=== PATIENT | male | born 1960 | race Two or more races ===

== ENCOUNTER 2016-10-13 22:06 | Emergency (ER) | payer OTHER ==
[2016-10-13 23:08] LABS: BASOPHIL % 1.5 % (0-2); PLATELET COUNT 326 x10^3mcL (130-400); RED CELL DISTRIBUTION WIDTH 13.1 % (11.5-14.5)
[2016-10-13 23:18] LABS: CALCIUM 8.8 mg/dL (8.5-10.1); CARBON DIOXIDE 28.1 mmol/L (21-32); CHLORIDE SERUM 92 mmol/L (98-107); GFR1 > 60 mL/min; GLUCOSE SERUM 333 mg/dL (74-106); POTASSIUM SERUM 3.6 mmol/L (3.5-5.1); SODIUM SERUM 131 mmol/L (136-145)
[2016-10-13 23:23] LABS: ALKALINE PHOSPHATASE 107 U/L (46-116); ALT/SGPT 27 U/L (16-63); AST/SGOT 15 U/L (15-37); BILIRUBIN TOTAL 0.2 mg/dL (0.20-1.00)
[2016-10-13 23:37] LABS: UA SPECIFIC GRAVITY >=1.030 (1.005-1.035); microscopic required? YES; urine erythrocyte 3+ (NEGATIVE)
[2016-10-13 23:49] LABS: ALBUMIN 3.1 g/dL (3.4-5.0)
[2016-10-14 00:33] VITALS: BP 147/91
== END 2016-10-14 00:33 | disposition home or self-care (01) ==
LOC: ED 22:06
PROVIDERS: Emergency Medicine
DX: N39.0 Urinary tract infection, site not specified (principal); I10 Essential (primary) hypertension; E11.9 Type 2 diabetes mellitus without complications; Z88.0 Allergy status to penicillin; Z79.84 Long term (current) use of oral hypoglycemic drugs
CPT/HCPCS: 36415; J1815

== ENCOUNTER 2018-03-29 07:33 | Inpatient (IN) | payer MEDICAID ==
[~2018-03-29] VITALS: Ht 175.3 cm; Wt 87.1 kg
[2018-03-29 07:40] VITALS: Ht 175.3 cm; Wt 87.1 kg
[2018-03-29 08:29] LABS: BASOPHIL % 0.9 % (0-2); PLATELET COUNT 306 x10^3mcL (130-400); RED CELL DISTRIBUTION WIDTH 13.5 % (11.5-14.5)
--- NOTE | 2018-03-29 09:02 | NUR ---
PT AWAKE AND ALERT. PT C/O DIZZINESS, HIGH BP AND FATIGUE X1 MONTH. PT REPORTS BEING NON COMPLIANT WITH HTN AND DM MEDICATIONS. PER , PT DOES NOT EAT WELL AND LIKES TO EAT A LOT OF SUGAR. PT ABLE TO ANSWER QUESTIONS APPROPRIATELY. PT DENIES ANY C/P. PT ON FULL CM. CALL LIGHT WITHIN REACH. MSE COMPLETED BY DR BHAT. RESP E/U
--- NOTE | 2018-03-29 09:04 | NUR ---
TWO IV'S IN PLACE. ONE ON L AC AND ONE ON R AC. BOTH IV'S PATENT. 2,000 ML BOLUS RUNNING AT THIS TIME.
[2018-03-29 09:06] LABS: ALBUMIN 3.6 g/dL (3.4-5.0); ALKALINE PHOSPHATASE 136 U/L (46-116); ALT/SGPT 27 U/L (16-63); AST/SGOT 17 U/L (15-37); BILIRUBIN TOTAL 0.51 mg/dL (0.20-1.00); CALCIUM 8.6 mg/dL (8.5-10.1); CARBON DIOXIDE 27.8 mmol/L (21-32); CHLORIDE SERUM 87 mmol/L (98-107); CREATININE SERUM 1.3 mg/dL (0.7-1.3); GFR1 > 60 mL/min; PHOSPHOROUS 4.7 mg/dL (2.5-4.9); TOTAL PROTEIN, SERUM 7.7 g/dL (6.4-8.2)
[2018-03-29 09:25] LABS: GLUCOSE SERUM 948 mg/dL (74-106); SODIUM SERUM 122 mmol/L (136-145)
--- NOTE | 2018-03-29 09:33 | NUR ---
PT MEDICATED WITH 10U REGULAR INSULIN, PER MD ORDERS
[2018-03-29] MEDS ORDERED: GLIPIZIDE10 M2 PO (09:34)
[2018-03-29] MEDS ORDERED: NOVOLOG FLEX100 U/M1 SC (09:34)
[2018-03-29] MEDS ORDERED: LANTUS SOLOS100 U/M1 SC (09:34)
[2018-03-29] MEDS ORDERED: LISINOPRIL10 MG PO (09:35)
--- NOTE | 2018-03-29 10:18 | NUR ---
DR BHAT NOTIFIED OF BLOOD GLUCOSE LEVEL OF 512
--- NOTE | 2018-03-29 10:45 | NUR ---
PT PROVIDED URINAL
--- NOTE | 2018-03-29 11:07 | NUR ---
PT RESTING ON ED GURNEY. PT ON FULL CM. PT EASILY AROUSABLE. NAD. RESP E/U. CALL LIGHT WITHIN REACH.
[2018-03-29 11:47] VITALS: BP 136/85
--- NOTE | 2018-03-29 11:47 | NUR ---
REC PT VIA GURENY, AMB TO BED, AA/O X4. BREATHING EVEN AND UNLABORED ON RA. NO SOB OR ACUTE RESP DISTRESS NOTED. MEDSURG. DENIES ANY CP OR PRESSURE. BOWEL SOUNDS ACTIVE IN ALL FOUR QUADS. DENIES ANY DISCOMFORT. VOIDS FREELY. AMB. IV TO THE L AND RAC 20G, INTACT AND PATENT, INFUSING AT 250ML/HR. NO REDNESS OR SWELLING NOTED. VS: 136/85 MAP 99, 91 HR, 98 RA, RESP 17. WILL CONTINUE TO MONITOR.
--- NOTE | 2018-03-29 13:04 | NUR ---
PER DR. JONES ORDERS HOLD 12 UNITS SLIDING SCALE AND GIVE 15UNITS OF REG INSULIN. PT REFUSE TO TAKE [address] REG [address] GIPSON. PT REMAINS NPO. WILL CONTINUE TO MONITOR.
[2018-03-29 13:25] VITALS: BP 136/85
[2018-03-29 13:30] LABS: CHOLESTEROL/HDL RATIO 4.6
[2018-03-29 16:45] VITALS: BP 191/118
[2018-03-29 17:46] VITALS: BP 164/101
--- NOTE | 2018-03-29 17:48 | NUR ---
BP 164/101 MAP 119, HR 89 DR. DOMINIQUE MADE AWARE.
--- NOTE | 2018-03-29 18:22 | NUR ---
SPOT ACCU CK PER DR. DOMINIQUE = 171, OK TO GIVE JELLO / WATER WILL BE ADDING DIET, CCHO. WILL CONTINUE TO MONITOR.
[2018-03-29 18:30] LABS: microscopic required? NO
--- NOTE | 2018-03-29 18:46 | NUR ---
NO ACUTE CHANGES AT THIS TIME. NO ACUTE RESP DISTRESS OR SOB NOTED, DENIES ANY CHEST PAIN OR PRESSURE. PT IS MUCH CALM AFTER HE WAS ABLE TO SNACK ON JELLO AND SANDWHICH PER DR. DOMINIQUE. IV TO THE RAC INTACT AND PATENT, INFUSING AT 250ML/HR, TOLERATING WELL. WILL ENDORSE TO INCOMING RN.
[2018-03-29 19:00] VITALS: BP 128/74
[2018-03-29 19:05] LABS: UA SPECIFIC GRAVITY 1.015 (1.005-1.035); urine erythrocyte NEGATIVE (NEGATIVE)
[2018-03-29 19:13] LABS: AMPHETAMINE QUAL UR POSITIVE (See below)
[2018-03-29 20:34] VITALS: BP 143/81
--- NOTE | 2018-03-29 20:35 | NUR ---
PATIENT RECEIVED ASLEEP IN BED BUT EASILY AROUSABLE TO NAME CALLING. RESPIRATION EVEN AND UNLABORED, ON ROOM AIR. ONGOING 0.9% NS AT 250 CC/HR INFUSING WELL AT THE RIGHT/LEFT ANTECUBITAL AREA. VOIDING FREELY WITHOUT DIFFICULTY. AMBULATORY. SKIN DRY AND INTACT. DENIES DISCOMFORT/PAIN AT THIS TIME. WILL CONTINUE TO MONITOR.
[2018-03-30 05:30] VITALS: BP 179/104
[2018-03-30 06:08] LABS: BASOPHIL % 0.5 % (0-2); PLATELET COUNT 293 x10^3mcL (130-400); RED CELL DISTRIBUTION WIDTH 13.4 % (11.5-14.5)
--- NOTE | 2018-03-30 06:12 | NUR ---
PATIENT RESTING IN BED. RESPIRATION EVEN AND UNLABORED, ON ROOM AIR. IV SITE NO SIGN OF INFILTRATION. ASSISTED WITH NEEDS. SAFETY OBSERVED. PLACED BED IN THE LOWEST POSITION. PLACED CALL LIGHT WITHIN REACH AT ALL TIMES.
--- NOTE | 2018-03-30 06:12 | NUR ---
PATIENTS BLOOD PRESSURE ELEVATED, 175/121. DR HAWKINS MADE AWARE.
[2018-03-30 06:21] LABS: CALCIUM 8.2 mg/dL (8.5-10.1); CARBON DIOXIDE 24.9 mmol/L (21-32); CHLORIDE SERUM 100 mmol/L (98-107); CREATININE SERUM 0.7 mg/dL (0.7-1.3); GFR1 > 60 mL/min; GLUCOSE SERUM 263 mg/dL (74-106); POTASSIUM SERUM 3.5 mmol/L (3.5-5.1); SODIUM SERUM 133 mmol/L (136-145)
--- NOTE | 2018-03-30 06:37 | NUR ---
PATIENT GIVEN HYRDRALAZINE 10 MG IVP ORDERED FOR ELEVATED BLOOD PRESSURE.
--- NOTE | 2018-03-30 07:27 | NUR ---
PT ENDORSE TO ME THIS MORNING. LAYING IN BED RESTING WITH EYES CLOSE/ EASILY AROUSABLE. TELE 12 SR/96 HR, NO SIGN OF CP OR PRESSURE. BREATHING EVEN AND UNLABORED ON RA. BOWEL SOUNDS ACTIVE IN ALL FOUR QUADS. VOIDS FREELY. GEN WEAKNESS NOTED. AMB. IV TO THE RAC AND LAC INTACT AND PATENT, INFUSING AT 80ML/HR. NO REDNESS OR SWELLING NOTED. CALL LIGHT IN REACH .BED IN LOW POSITION/ CALL LIGHT IN RAECH. BED IN LOW POSITION WILL CONTINUE PLAN OF CARE.
[2018-03-30 08:00] VITALS: BP 138/97
[2018-03-30 11:55] VITALS: BP 150/87
--- NOTE | 2018-03-30 13:50 | NUR ---
PT TOLERATED 100% OF OF HIS LUNCH. DENIES ANY ABD PAIN OR N/V. WILL CONTINUE PLAN OF CARE.
[2018-03-30 16:11] VITALS: BP 147/90
--- NOTE | 2018-03-30 18:09 | NUR ---
TOLERATED 100% DINNER. DENIES ANY N/V OR ABD DISCOMFORT. WILL CONTINUE PLAN OF CARE.
--- NOTE | 2018-03-30 20:00 | NUR ---
RECEIVED PT IN BED, RESTING QUIETLY. ALERT AND ORIENTED. DENIES HEADACHE/DIZZINESS. RESP. EVEN AND UNLABORED. ON ROOM AIR, NO ACUTE DISTRESS NOTED. SR ON THE MONITOR, DENIES CHEST PAIN OR ANY DISCOMFORT. IVF NS AT 80ML/HR, INTACT AND INFUSING VIA RAC, SITE CLEAR. AMBULATORY. VOIDING FREELY.NO COMPLAINTS NOTED AT THIS TIME. CALL LIGHT WITHIN REACH. WILL CONTINUE TO MONITOR.
[2018-03-30 21:48] VITALS: BP 149/91
--- NOTE | 2018-03-31 02:27 | NUR ---
NO COMPLAINTS NOTED AT THIS TIME. ASLEEP, EASILY AROUSABLE. RESP. EVEN AND UNLABORED. NO ACUTE DISTRESS NOTED.
--- NOTE | 2018-03-31 03:01 | NUR ---
COMPLAINING OF PAIN TO IV SITE, RONAKONT. NEW IV SITE RESTARTED ON RT HAND WITH #22G ANGIO. IVF INFUSING AT THIS TIME. WILL CONTINUE TO MONITOR.
--- NOTE | 2018-03-31 04:58 | NUR ---
B/P READING SHOWS 170/98. HYDRALAZINE PO GIVEN ORDERED. WILL CONTINUE TO MONITOR.
[2018-03-31 05:38] VITALS: BP 150/88
[2018-03-31 06:25] LABS: BASOPHIL % 0.4 % (0-2); PLATELET COUNT 309 x10^3mcL (130-400); RED CELL DISTRIBUTION WIDTH 13.9 % (11.5-14.5)
--- NOTE | 2018-03-31 06:28 | NUR ---
AFEBRILE. B/P RECHECK SHOWS 150/88. PT DENIES CHEST PAIN OR ANY DISCOMFORT AT THIS TIME. IVF INTACT AND INFUSING WELL, SITE CLEAR.VOIDING FREELY. NO COMPLAINTS NOTED AT THIS TIME. BLOOD SUGAR CHECKED, INSULIN COVERAGE GIVEN ORDERED. NO S/S OF HYPO/HYPERGLYCEMIA NOTED. WILL ENDORSE TO INCOMING NURSE.
[2018-03-31 06:53] LABS: CALCIUM 8.1 mg/dL (8.5-10.1); CARBON DIOXIDE 23.9 mmol/L (21-32); CHLORIDE SERUM 99 mmol/L (98-107); CREATININE SERUM 0.7 mg/dL (0.7-1.3); GFR1 > 60 mL/min; GLUCOSE SERUM 196 mg/dL (74-106); MAGNESIUM 1.6 mg/dL (1.8-2.4); PHOSPHOROUS 3.1 mg/dL (2.5-4.9); POTASSIUM SERUM 3.1 mmol/L (3.5-5.1); SODIUM SERUM 128 mmol/L (136-145)
--- NOTE | 2018-03-31 07:12 | NUR ---
RECEIVED PT FROM GIGI ALMENDAREZ. PT FOUND RESTING IN BED WITH BOTH EYES CLOSED NO S/S OF ACUTE DISTRESS. RR EVEN/UNLABORED. CHEST EXP SYMMETRICAL. NO SOB. NO S/S OF CHEST PAIN. IV WNL TO RH, NO REDNESS, NO SWELLING, NO INFILTRATION. IV FLUIDS FLOWING. BED IN LOW POSITION. CALL LIGHT WITHIN REACH. WILL CONT. TO MONITOR.
[2018-03-31 08:13] VITALS: BP 152/100
[2018-03-31 08:52] VITALS: BP 152/100
--- NOTE | 2018-03-31 11:00 | NUR ---
PT LEFT AMA WITHOUT BEING SEEN BY PHYSICIAN. PT STATES, "I WANT TO GO HOME, I DON'T NEED TO BE AT THIS HOSPITAL ANYMORE. I CAN TAKE CARE OF MYSELF." PT AWAKE, ALERT, ORIENTED X4. NO COMPLAINT OF PAIN. NO SOB ON ROOM AIR. NO S/S OF ACUTE DISTRESS. PT CRYING/AGITATED. IVS REMOVED FROM RIGHT HAND AND LAC, NO REDNESS, NO SWELLING, NO INFILTRATION. CATHETERS IN TACT. PRESSURE APPLIED. SITES WNL. NSR ON TELE, TELE REMOVED. NO CHEST PAIN. TIMBER MANAGEMENT ASSISTANT EILEEN ZAIDI MADE AWARE. [employer] MANSURI GIPSON. ESCORTED PT TO LOBBY. BELONGINGS WITH PATIENT. INSTRUCTED PT TO FOLLOW UP WITH PCP. PT STATED, "I WILL TRY TO SEE IF I CAN MAKE AN APPOINTMENT TO SEE HIM TODAY."
== END 2018-03-31 11:00 | disposition left against medical advice (07) | DRG 199 ==
LOC: ED 07:33 → MU 10:17 → DU 03-30 06:45
PROVIDERS: Emergency Medicine; ADMIT Family Medicine
DX: I16.0 Hypertensive urgency (principal); D68.69 Other thrombophilia; E11.42 Type 2 diabetes mellitus with diabetic polyneuropathy; E11.65 Type 2 diabetes mellitus with hyperglycemia; E11.59 Type 2 diabetes mellitus with other circulatory complications; E87.1 Hypo-osmolality and hyponatremia; Z68.28 Body mass index [BMI] 28.0-28.9, adult; Z79.4 Long term (current) use of insulin; Z91.11 Patient's noncompliance with dietary regimen
CPT/HCPCS: 82962; J0360; J1644; J1815; J2405; J3490; J7030; J8597; Q0092

== ENCOUNTER 2018-07-23 20:16 | Emergency (ER) | payer OTHER ==
[~2018-07-23] VITALS: Ht 170.2 cm; Wt 85.7 kg
[~2018-07-23 20:16] MED LIST: GLIPIZIDE10 M2 PO; LANTUS SOLOS100 U/M1 SC; LISINOPRIL10 MG PO; NOVOLOG FLEX100 U/M1 SC
[2018-07-23 20:29] VITALS: Ht 170.2 cm; Wt 85.7 kg
[2018-07-23 21:33] LABS: BASOPHIL % 0.5 % (0-2); PLATELET COUNT 388 x10^3mcL (130-400); RED CELL DISTRIBUTION WIDTH 14.5 % (11.5-14.5)
[2018-07-23 21:53] LABS: CARBON DIOXIDE 27.6 mmol/L (21-32); CHLORIDE SERUM 99 mmol/L (98-107); CREATININE SERUM 0.8 mg/dL (0.7-1.3); GFR1 > 60 mL/min; GLUCOSE SERUM 264 mg/dL (74-106); POTASSIUM SERUM 4.4 mmol/L (3.5-5.1); SODIUM SERUM 134 mmol/L (136-145)
[2018-07-23 21:58] LABS: ALBUMIN 3.6 g/dL (3.4-5.0); ALKALINE PHOSPHATASE 85 U/L (46-116); ALT/SGPT 27 U/L (16-63); AST/SGOT 13 U/L (15-37); BILIRUBIN TOTAL 0.3 mg/dL (0.20-1.00); TOTAL PROTEIN, SERUM 7.2 g/dL (6.4-8.2)
[2018-07-24 00:23] VITALS: BP 154/101
== END 2018-07-24 01:04 | disposition home or self-care (01) ==
LOC: ED 20:16
PROVIDERS: Emergency Medicine
DX: R53.83 Other fatigue (principal); D64.9 Anemia, unspecified; R19.7 Diarrhea, unspecified; R42 Dizziness and giddiness; R53.1 Weakness
CPT/HCPCS: 82962; 83880; 84439; J7030

== ENCOUNTER 2018-12-08 14:57 | Inpatient (IN) | payer OTHER ==
[~2018-12-08] VITALS: Ht 175.3 cm; Wt 107.1 kg
[2018-12-08 15:16] VITALS: Ht 175.3 cm; Wt 107.1 kg
--- NOTE | 2018-12-08 15:38 | NUR ---
DR. SILVA AT BEDSIDE FOR MSE.
--- NOTE | 2018-12-08 15:38 | NUR ---
PT PRESENTS TO ED BIBA WITH C/O OF GENERALIZED WEAKNESS X2 WKS AND BILATERAL UPPER AND LOWER EXTREMITY PAIN. PER PT HAS BEEN ONLY EATING AND SLEEPING LAST COUPLE DAYS AND DOES DIFFICULT TO MOVE AROUND. REPORTS PT HAS HX OF ULCERS AND HAD GI BLEEDING 6MONTHS AGO. PER PT ACTS LETHARGIC "WHEN HIS BLOOD COUNT IS LOW". PT STS HE HAS HX OF UPPER AND LOWER EXTREMITY PAIN BUT IT HAS BEEN WORSE FOR LAST 2WKS. PT AAOX4, RESP E/U, ON FULL CM, AT BEDSIDE, WILL CONTINUE TO MONITOR.
--- NOTE | 2018-12-08 15:56 | NUR ---
PT OFF FLOOR FOR XRAY
[2018-12-08 16:26] LABS: BASOPHIL % 0 % (0-2); PLATELET COUNT 417 x10^3mcL (130-400)
[2018-12-08 16:39] LABS: CALCIUM 8.3 mg/dL (8.5-10.1); CHLORIDE SERUM 101 mmol/L (98-107); CREATININE SERUM 0.9 mg/dL (0.7-1.3); GFR1 > 60 mL/min; GLUCOSE SERUM 274 mg/dL (74-106); POTASSIUM SERUM 5.2 mmol/L (3.5-5.1); SODIUM SERUM 135 mmol/L (136-145)
[2018-12-08 16:46] LABS: rbc morphology (normal/abnorm) ABNORMAL (NORMAL)
[2018-12-08 16:52] LABS: ALKALINE PHOSPHATASE 91 U/L (46-116); ALT/SGPT 34 U/L (16-63); AST/SGOT 24 U/L (15-37); BILIRUBIN TOTAL 0.2 mg/dL (0.20-1.00); HDL CHOLESTEROL 43 mg/dL (40-60); LIPASE 203 IU/L (73-393); T4(THYROXINE) 7.2 ug/dL (4.7-13.3); TOTAL PROTEIN, SERUM 7.6 g/dL (6.4-8.2)
[2018-12-08 16:56] LABS: ALBUMIN 3.2 g/dL (3.4-5.0); CHOLESTEROL 222 mg/dL (<200)
[2018-12-08 17:12] LABS: microscopic required? NO
[2018-12-08 17:33] LABS: UA SPECIFIC GRAVITY 1.015 (1.005-1.035); urine erythrocyte NEGATIVE (NEGATIVE)
[2018-12-08 17:58] LABS: AMPHETAMINE QUAL UR NONE DETECTED (See below)
--- NOTE | 2018-12-08 18:30 | NUR ---
PT SITTING UP ON CARMENZA, AAOX4, RESP E/U, NO ACUTE DISTRESS NOTED AT THIS TIME. PT AT BEDSIDE.
--- NOTE | 2018-12-08 19:25 | NUR ---
REPORT GIVEN TO SURI SON TO ASSUME CARE OF PT.
--- NOTE | 2018-12-08 19:30 | NUR ---
FIRST INTIAL CONTACT WITH PT, PT. LAYING IN BED, DIAPHORETIC, INTERMITTENT CONFUSION, OBTAINED BS, BS WAS 31, ADMINISTERED D50 PER PRN ORDER, PT. TOLERATED WELL, WILL REPEAT BS, REPORTED TO
--- NOTE | 2018-12-08 19:46 | NUR ---
REPORT GIVEN TO ERICKSON MCCORD MEDSURG,
--- NOTE | 2018-12-08 19:59 | NUR ---
RE-CHECK BS 117, PT. AAOX4, NOT CONFUSED, ABLE TO ANSWER QUESTIONS, IS NOT DIAPHOETIC, STATES HE IS FEELING BETTER
[2018-12-08] MEDS ORDERED: NOR5 PO (20:19)
[2018-12-08] MEDS ORDERED: ZESTRIL20 MG PO (20:20)
[2018-12-08 20:21] VITALS: BP 186/100
--- NOTE | 2018-12-08 20:24 | NUR ---
RECEIVED PT FROM ED VIA GIULIA. ORIENTED PT TO ROOM AND SURROUNDINGS. IV NOTED TO RAC PATENT AND INTACT. INSTRUCTED PT ON THE USE OF CALL LIGHT FOR ASSISTANCE. ENDORSED PT TO PRIMARY NURSE ERICKSON
[2018-12-08 20:47] LABS: IRON 43 ug/dL (65-170)
[2018-12-08 20:50] LABS: TOTAL IRON BINDING CAPACITY 457 ug/dL (250-450)
[2018-12-08 20:53] LABS: RED BLOOD CELLS 5.19 M/mm3 (4.52-5.90)
--- NOTE | 2018-12-08 22:17 | NUR ---
RESTING IN BED, NEW ADM. FROM ED. ADMITTED WITH DIAGNOSIS OF UNCONTROLLED DM. A/O X4. DENIES HEADACHE/DIZZINESS. RESP. EVEN AND UNLABORED. LUNG SOUNDS CLEAR BILAT. ON ROOM AIR, NO ACUTE DISTRESS NOTED. AFEBRILE AND VITAL SIGNS STABLE. MED-SURG PT, DENIES CP OR ANY DISCOMFORT AT THIS TIME. STARTED ON IVF, NS AT 100ML/HR, INTACT AND INFUSING VIA RAC, SITE CLEAR. DUE MEDS GIVEN ORDERED, JONO. WELL. BLOOD SUGAR CHECK SHOWS 98. NO S/S OF HYPER/HYPOGLYCEMIA NOTED. WITH GEN. WEAKNESS, NEEDS MIN. ASSIST. AT THE BEDSIDE. CALL LIGHT WITHIN REACH. WILL CONTINUE TO MONITOR.
[2018-12-09 00:56] LABS: CHOLESTEROL/HDL RATIO 5.3
--- NOTE | 2018-12-09 01:47 | NUR ---
NO COMPLAINTS NOTED AT THIS TIME. RESP. EVEN AND UNLABORED.NO ACUTE DISTRESS NOTED. EYES CLOSED , APPEARS ASLEEP, EASILY AROUSABLE. CALL LIGHT WITHIN REACH. WILL CONTINUE TO MONITOR.
[2018-12-09 05:00] VITALS: BP 142/86
--- NOTE | 2018-12-09 06:13 | NUR ---
AFEBRILE AND VITAL SIGNS STABLE. RESP. EVEN AND UNLABORED. NO ACUTE DISTRESS NOTED. IVF INTACT AND INFUSING WELL, SITE CLEAR. BLOOD SUGAR CHECK READS 68, OJ AND SNACK GIVEN. NO S/S OF HYPO/HYPERGLYCEMIA NOTED . KPET COMFORTABLE. CALL LIGHT WITHIN REACH. WILL CONTINUE TO MONITOR.
[2018-12-09 06:46] LABS: CALCIUM 8.1 mg/dL (8.5-10.1); CARBON DIOXIDE 28.3 mmol/L (21-32); CHLORIDE SERUM 105 mmol/L (98-107); CREATININE SERUM 0.7 mg/dL (0.7-1.3); GFR1 > 60 mL/min; GLUCOSE SERUM 77 mg/dL (74-106); MAGNESIUM 1.8 mg/dL (1.8-2.4); PHOSPHOROUS 3.9 mg/dL (2.5-4.9); SODIUM SERUM 140 mmol/L (136-145)
[2018-12-09 06:55] LABS: BASOPHIL % 0.2 % (0-2); PLATELET COUNT 369 x10^3mcL (130-400)
[2018-12-09 07:02] LABS: RED CELL DISTRIBUTION WIDTH 22.3 % (11.5-14.5)
--- NOTE | 2018-12-09 07:45 | NUR ---
RECEIVED PT FROM EVENT SECURITY OFFICER. PT ASLEEP/DROWSY AT THIS TIME. PT ON ROOM AIR WITH NO RESP DISTRESS NOTED. IV ACCESS RAC, CDI INFUSING NS AT 100ML/HR. PERIPHERAL PULSES PALPABLE, NO EDEMA NOTED. BOWEL SOUNDS ACTIVE, NO APPARENT ISSUES WITH ELIMINATION AT THIS TIME. PT NOTED TO HAVE GENERALIZED WEAKNESS. SAFETY MEASURES IN PLACE, BED LOW AND LOCKED. CALL LIGHT WITHIN REACH.
--- NOTE | 2018-12-09 08:26 | NUR ---
BLOOD SUGAR CHECK 105. PT ENCOURAGED TO EAT. PT COOPERATIVE.
--- NOTE | 2018-12-09 08:26 | NUR ---
DUE MEDICATIONS ADMINISTERED ORDERED (SEE EMAR). PT TOLERATED WELL. PT SLEEPY/DROWSY AT THIS TIME. PT ASSISTED TO EAT BREAKFAST.
[2018-12-09 09:19] VITALS: BP 127/82; BP 142/80
--- NOTE | 2018-12-09 09:54 | NUR ---
PT ASKING FOR PAIN MED, WANTS MORPHINE. PAIN 9/10 IN HANDS AND LEGS. MED ADMINISTERED ORDERED PRN (SEE EMAR).
--- NOTE | 2018-12-09 11:00 | NUR ---
PT SLEEPING WITH FAMILY AT BEDSIDE. NO DISCOMFORT NOTED AT THIS TIME.
[2018-12-09 11:24] LABS: rbc morphology (normal/abnorm) ABNORMAL (NORMAL)
--- NOTE | 2018-12-09 11:42 | NUR ---
BLOOD SUGAR 183, 3 UNITS GIVEN ORDERED OF REG INSULIN. PT PROVIDED WITH SNACKS.
--- NOTE | 2018-12-09 12:40 | NUR ---
PT AWAKE, ALERT. PT EATING LUNCH AT THIS TIME. A/OX4 WITH NO DROWSINESS NOTED. FAMILY AT BEDSIDE. NO DISCOMFORT NOTED.
[2018-12-09 13:37] VITALS: BP 127/82
--- NOTE | 2018-12-09 13:53 | NUR ---
DISCHARGE INSTRUCTIONS/EDUCATION PROVIDED TO PATIENT AND FAMILY. PT TO FOLLOW UP WITH APPT PROVIDED. IV ACCESS REMOVED WITH CATHETER INTACT. NO REDNESS OR BLEEDING NOTED. PT TO BE TAKEN BY WHEELCHAIR TO [employer] [employer] FOR DISCHARGE. SAFETY MAINTAINED.
== END 2018-12-09 14:21 | disposition home or self-care (01) | DRG 48 ==
LOC: ED 14:57 → MU 18:30
PROVIDERS: Emergency Medicine; ADMIT Internal Medicine
DX: E11.42 Type 2 diabetes mellitus with diabetic polyneuropathy (principal); G93.41 Metabolic encephalopathy; E46 Unspecified protein-calorie malnutrition; E11.65 Type 2 diabetes mellitus with hyperglycemia; E87.1 Hypo-osmolality and hyponatremia; K31.84 Gastroparesis; E87.5 Hyperkalemia; E78.5 Hyperlipidemia, unspecified; I10 Essential (primary) hypertension; D50.9 Iron deficiency anemia, unspecified; Z79.4 Long term (current) use of insulin; Z68.30 Body mass index [BMI] 30.0-30.9, adult; Z88.0 Allergy status to penicillin; E78.00 Pure hypercholesterolemia, unspecified; Z83.3 Family history of diabetes mellitus; Z82.3 Family history of stroke
CPT/HCPCS: 36600; 82962; 84439; G0378; G0480; J1815; J2270; J3490; J7030

== ENCOUNTER 2018-12-18 16:36 | Emergency (ER) | payer OTHER ==
[~2018-12-18] VITALS: Ht 175.3 cm; Wt 98.0 kg
[~2018-12-18 16:36] MED LIST changes: +NOR5 PO; +ZESTRIL20 MG PO
[2018-12-18 18:04] LABS: UA SPECIFIC GRAVITY >=1.030 (1.005-1.035); microscopic required? YES; urine erythrocyte NEGATIVE (NEGATIVE)
[2018-12-18 18:14] LABS: AMPHETAMINE QUAL UR POSITIVE (See below)
[2018-12-18 18:19] LABS: CALCIUM 9.1 mg/dL (8.5-10.1); CARBON DIOXIDE 27.7 mmol/L (21-32); CHLORIDE SERUM 101 mmol/L (98-107); CREATININE SERUM 0.9 mg/dL (0.7-1.3); GFR1 > 60 mL/min; GLUCOSE SERUM 183 mg/dL (74-106); POTASSIUM SERUM 3.8 mmol/L (3.5-5.1); SODIUM SERUM 139 mmol/L (136-145)
[2018-12-18 18:24] LABS: ALBUMIN 3.8 g/dL (3.4-5.0); ALKALINE PHOSPHATASE 97 U/L (46-116); ALT/SGPT 30 U/L (16-63); AST/SGOT 20 U/L (15-37); BILIRUBIN TOTAL 0.24 mg/dL (0.20-1.00); TOTAL PROTEIN, SERUM 8.2 g/dL (6.4-8.2)
[2018-12-18 18:25] LABS: BAND NEUTROPHIL 0 % (0-10); BASOPHIL 0 % (0-2); MONOCYTE 6 % (0-7); SEGMENTED NEUTROPHILS 75 % (37-75)
[2018-12-18 18:26] LABS: rbc morphology (normal/abnorm) ABNORMAL (NORMAL)
[2018-12-18 18:28] LABS: PLATELET COUNT 414 x10^3mcL (130-400)
[2018-12-18 22:56] VITALS: BP 168/93
== END 2018-12-18 22:56 | disposition home or self-care (01) ==
LOC: ED 16:36
PROVIDERS: Emergency Medicine
DX: R53.1 Weakness (principal); N50.9 Disorder of male genital organs, unspecified; M79.10 Myalgia, unspecified site; I10 Essential (primary) hypertension; E11.9 Type 2 diabetes mellitus without complications; E78.00 Pure hypercholesterolemia, unspecified; Z88.0 Allergy status to penicillin
CPT/HCPCS: 82962; 87804; J7030; Q0092

== ENCOUNTER 2019-02-19 17:46 | Emergency (ER) | payer OTHER ==
[~2019-02-19] VITALS: Ht 175.3 cm; Wt 96.2 kg
[2019-02-19 17:51] VITALS: Ht 175.3 cm; Wt 96.2 kg
[2019-02-19 18:34] LABS: microscopic required? NO
[2019-02-19 18:54] LABS: CALCIUM 8.8 mg/dL (8.5-10.1); CARBON DIOXIDE 25.8 mmol/L (21-32); CHLORIDE SERUM 96 mmol/L (98-107); CREATININE SERUM 0.9 mg/dL (0.7-1.3); GFR1 > 60 mL/min; GLUCOSE SERUM 354 mg/dL (74-106); POTASSIUM SERUM 4.3 mmol/L (3.5-5.1); SODIUM SERUM 132 mmol/L (136-145)
[2019-02-19 18:58] LABS: ALBUMIN 3.4 g/dL (3.4-5.0); ALKALINE PHOSPHATASE 118 U/L (46-116); ALT/SGPT 27 U/L (16-63); AST/SGOT 14 U/L (15-37); BASOPHIL % 0.2 % (0-2); BILIRUBIN TOTAL 0.2 mg/dL (0.20-1.00); HDL CHOLESTEROL 38 mg/dL (40-60); PHOSPHOROUS 3.9 mg/dL (2.5-4.9); PLATELET COUNT 423 x10^3mcL (130-400); RED CELL DISTRIBUTION WIDTH 15.4 % (11.5-14.5); TOTAL PROTEIN, SERUM 8.1 g/dL (6.4-8.2)
[2019-02-19 19:00] LABS: CHOLESTEROL 232 mg/dL (<200)
[2019-02-19 19:05] LABS: urine erythrocyte NEGATIVE (NEGATIVE)
[2019-02-19 19:50] VITALS: BP 168/102
== END 2019-02-19 19:50 | disposition home or self-care (01) ==
LOC: ED 17:46
PROVIDERS: Emergency Medicine
DX: R53.1 Weakness (principal); E11.65 Type 2 diabetes mellitus with hyperglycemia; I10 Essential (primary) hypertension; E78.00 Pure hypercholesterolemia, unspecified; E86.0 Dehydration; Z88.0 Allergy status to penicillin
CPT/HCPCS: 82962; J1815; J7030; Q0092

== ENCOUNTER 2019-04-02 14:23 | Emergency (ER) | payer OTHER ==
[~2019-04-02] VITALS: Ht 170.2 cm; Wt 93.9 kg
[2019-04-02 15:12] VITALS: Ht 170.2 cm; Wt 93.9 kg
[2019-04-02 17:14] VITALS: BP 141/74
== END 2019-04-02 17:14 | disposition home or self-care (01) ==
LOC: ED 14:23
DX: S60.352A Superficial foreign body of left thumb, initial encounter (principal); I10 Essential (primary) hypertension; E11.9 Type 2 diabetes mellitus without complications; E78.00 Pure hypercholesterolemia, unspecified; L03.012 Cellulitis of left finger; Z88.0 Allergy status to penicillin; W45.8XXA Other foreign body or object entering through skin, initial encounter; Y93.89 Activity, other specified; Y92.89 Other specified places as the place of occurrence of the external cause; Y99.8 Other external cause status

== ENCOUNTER 2019-04-04 13:53 | Emergency (ER) | payer OTHER ==
[~2019-04-04] VITALS: Ht 175.3 cm; Wt 96.6 kg
[2019-04-04 16:02] LABS: BASOPHIL % 0.5 % (0-2); PLATELET COUNT 324 x10^3mcL (130-400)
[2019-04-04 16:03] LABS: RED CELL DISTRIBUTION WIDTH 15.1 % (11.5-14.5)
[2019-04-04 16:22] LABS: ALKALINE PHOSPHATASE 126 U/L (46-116); ALT/SGPT 26 U/L (16-63); AST/SGOT 12 U/L (15-37); BILIRUBIN TOTAL 0.2 mg/dL (0.20-1.00); CALCIUM 8.8 mg/dL (8.5-10.1); CARBON DIOXIDE 25.3 mmol/L (21-32); CHLORIDE SERUM 94 mmol/L (98-107); GFR1 > 60 mL/min; POTASSIUM SERUM 4.3 mmol/L (3.5-5.1); SODIUM SERUM 126 mmol/L (136-145); TOTAL PROTEIN, SERUM 7.5 g/dL (6.4-8.2)
[2019-04-04 16:23] LABS: ALBUMIN 3.3 g/dL (3.4-5.0)
[2019-04-04 16:25] LABS: GLUCOSE SERUM 587 mg/dL (74-106)
[2019-04-04 18:00] VITALS: BP 136/91
== END 2019-04-04 18:00 | disposition home or self-care (01) ==
LOC: ED 13:53
PROVIDERS: Emergency Medicine
DX: L02.512 Cutaneous abscess of left hand (principal); E11.65 Type 2 diabetes mellitus with hyperglycemia; I10 Essential (primary) hypertension; E78.00 Pure hypercholesterolemia, unspecified
CPT/HCPCS: 82962; J1815; J2001; J2270; J2405; J3490; J7030

== ENCOUNTER 2020-03-13 14:10 | Emergency (ER) | payer OTHER ==
[~2020-03-13] VITALS: Ht 175.3 cm; Wt 95.3 kg
[2020-03-13 15:03] VITALS: BP 162/78; Ht 175.3 cm; Wt 95.3 kg
== END 2020-03-13 17:07 | disposition left against medical advice (07) ==
LOC: ED 14:10
DX: Z53.21 Procedure and treatment not carried out due to patient leaving prior to being seen by health care provider (principal)

== ENCOUNTER 2020-03-21 13:30 | Emergency (ER) | payer OTHER ==
[~2020-03-21] VITALS: Ht 175.3 cm; Wt 95.3 kg
[2020-03-21 13:53] VITALS: BP 124/69; Ht 175.3 cm; Wt 95.3 kg
== END 2020-03-21 15:28 | disposition home or self-care (01) ==
LOC: ED 13:30
DX: Z53.21 Procedure and treatment not carried out due to patient leaving prior to being seen by health care provider (principal)

== ENCOUNTER 2020-03-21 15:28 | Emergency (ER) | payer OTHER ==
[~2020-03-21] VITALS: Ht 175.3 cm; Wt 95.3 kg
[2020-03-21 15:30] VITALS: BP 157/81; Ht 175.3 cm; Wt 95.3 kg
== END 2020-03-21 22:10 | disposition left against medical advice (07) ==
LOC: ED 15:28
DX: Z53.21 Procedure and treatment not carried out due to patient leaving prior to being seen by health care provider (principal)